=== PATIENT | male | born 1975 | race Caucasian/White ===

== ENCOUNTER 2016-07-30 07:01 | Emergency (ER) | payer OTHER ==
[2016-07-30] MEDS ORDERED: TYLENOL EXTRA500 M1 PO (07:10)
[2016-07-30 07:59] LABS: BASO % 0.2 % (0-2); EOS % 1.3 % (0-7); EOSINOPHIL ABSOLUTE COUNT 0.1 tho/cmm (0.0-0.7); HCT-HEMATOCRIT 40.4 % (36.0-53.5); HGB-HEMOGLOBIN 13.7 gm/dl (13.5-17.0); IMMATURE GRANULOCYTES ABSOLUTE 0.01 tho/cmm (0-0.03); IMMATURE GRANULOCYTES PERCENT 0.1 % (0-0.3); LYMPH % 19.3 % (20-45); LYMPH ABSOLUTE COUNT 1.7 tho/cmm (0.8-4.5); MCH (MEAN CORPUSCULAR HGB) 30.4 pg (28.0-32.0); MCHC MEAN CORPUSCULAR HGB CONC 33.9 % (32.0-36.0); MCV (MEAN CELL VOLUME) 89.6 fl (82.0-96.0); MEAN PLATELET VOLUME 9.9 cmc (9.4-12.4); MONO % 4.9 % (0-12); MONOCYTE ABSOLUTE COUNT 0.4 tho/cmm (0.0-1.2); NEUTROPHIL ABSOLUTE COUNT 6.5 tho/cmm (1.6-8.0); NEUTROPHIL-AUTOMATED 6.5 tho/cmm (1.6-8.0); NEUTROPHILS % 74.2 % (40-80); PLATELET COUNT 288 tho/cmm (150-450); RED BLOOD COUNT 4.51 mil/cmm (4.40-5.70); RED CELL DISTRIBUTION WIDTH 13.2 % (12.4-16.4); WHITE BLOOD COUNT 8.8 tho/cmm (4.0-10.0)
[2016-07-30 08:10] LABS: ANION GAP 10 mmol/L (0-20); BLOOD UREA NITROGEN 12 mg/dl (6-24); CALCIUM 8.9 mg/dl (8.5-10.5); CARBON DIOXIDE-VENOUS 28 mmol/L (22-32); CHLORIDE 105 mmol/l (96-110); CREATININE 1.24 mg/dl (0.60-1.30); GLUCOSE 144 mg/dL (70-110); POTASSIUM 3.8 mmol/L (3.7-5.1); SODIUM 139 mmol/L (135-145); eGFR VALUE FOR BLACK 85 mL/Min
[2016-07-30 11:12] LABS: URINE APPEARANCE CLOUDY; URINE BILIRUBIN NEGATIVE (NEG); URINE BLOOD LARGE (NEG); URINE COLOR DARK YELLOW; URINE GLUCOSE (UA) NEGATIVE (NEG); URINE KETONE SMALL (NEG); URINE LEUKOCYTE ESTERASE POSITIVE (NEG); URINE NITRITE NEGATIVE (NEG); URINE PROTEIN MODERATE (NEG); URINE SPECIFIC GRAVITY 1.025 (1.003-1.030)
[2016-07-30 11:24] LABS: URINE AMORPHOUS 2+; URINE BACTERIA 1+; URINE EPITHELIAL CELLS 0-1 /[HPF] (0-10); URINE RBC FULL FIELD /[HPF] (0-5); URINE WBC 0-1 /[HPF] (0-5)
[2016-07-30] MEDS ORDERED: ZOFRAN ODT4 MG PO (11:33)
[2016-07-30] MEDS ORDERED: FLOMAX0.4 M1 PO (11:33)
[2016-07-30] MEDS ORDERED: ULTRAM50 M1 PO (11:33)
[2016-07-30] MEDS ORDERED: CIPRO500 M2 PO (11:33)
== END 2016-07-30 11:55 ==
LOC: EDMED 07:01
PROVIDERS: Emergency Medicine
DX: N13.2 Hydronephrosis with renal and ureteral calculous obstruction (principal)
CPT/HCPCS: J1170; J1885; J2405; J7030